=== PATIENT | female | born 1980 | race Two or more races ===

== ENCOUNTER 2018-02-24 09:42 | Outpatient (CLI) | payer OTHER | END 2018-02-24 10:16 | disposition home or self-care (01) | LOC: SONOGRAMA 09:42 | DX: N63.11 Unspecified lump in the right breast, upper outer quadrant (principal); N60.11 Diffuse cystic mastopathy of right breast; N60.12 Diffuse cystic mastopathy of left breast ==

== ENCOUNTER 2018-06-23 08:18 | Outpatient (CLI) | payer OTHER ==
[2018-06-29] MEDS ORDERED: PERCOCET PO (08:46)
[2018-06-29] MEDS ORDERED: PERCOCET (08:46)
== END 2018-06-23 08:38 | disposition home or self-care (01) ==
LOC: LAB 08:18
DX: Z01.810 Encounter for preprocedural cardiovascular examination (principal); Z01.812 Encounter for preprocedural laboratory examination

== ENCOUNTER 2018-06-30 06:30 | Inpatient (IN) | payer OTHER ==
[~2018-06-30] VITALS: Ht 160 cm; Wt 72.6 kg
[~2018-06-30 06:30] MED LIST: PERCOCET; PERCOCET PO
[2018-06-30] MEDS ORDERED: PERCOCET 2.5-31 EACH PO (08:30)
== END 2018-07-01 13:37 | disposition home or self-care (01) | DRG 581 ==
LOC: O/R 06:30 → SURG 07:30 → SURH 18:29
PROVIDERS: Plastic Surgery; Surgery
PROC: 0HHV0NZ Insertion of Tissue Expander into Bilateral Breast, Open Approach (ICD-10-PCS; 2018-06-30)
PROC: 07B50ZX Excision of Right Axillary Lymphatic, Open Approach, Diagnostic (ICD-10-PCS; principal; 2018-06-30 09:45)
PROC: 0HTV0ZZ Resection of Bilateral Breast, Open Approach (ICD-10-PCS; 2018-06-30 09:45)
DX: C50.411 Malignant neoplasm of upper-outer quadrant of right female breast (principal); Z90.13 Acquired absence of bilateral breasts and nipples; N62 Hypertrophy of breast

== ENCOUNTER 2018-09-01 08:13 | Outpatient (CLI) | payer OTHER ==
[~2018-09-01 08:13] MED LIST changes: +PERCOCET 2.5-31 EACH PO
[2018-09-01] MEDS ORDERED: TAMOXIFEN CITRA20 MG (10:34)
== END 2018-09-01 12:37 | disposition home or self-care (01) ==
LOC: LAB 08:13
DX: C50.411 Malignant neoplasm of upper-outer quadrant of right female breast (principal)

== ENCOUNTER 2018-09-01 08:16 | Outpatient (CLI) | payer OTHER ==
[2018-09-01] MEDS ORDERED: TAMOXIFEN CITRA20 MG (10:34)
== END 2018-09-01 08:44 | disposition home or self-care (01) ==
LOC: EKG 08:16
DX: C50.411 Malignant neoplasm of upper-outer quadrant of right female breast (principal)

== ENCOUNTER 2018-09-04 05:50 | Day surgery (SDC) | payer OTHER ==
[~2018-09-04 05:50] MED LIST changes: +TAMOXIFEN CITRA20 MG
== END 2018-09-04 13:21 | disposition home or self-care (01) ==
LOC: CIR.AMB 05:50
DX: N65.1 Disproportion of reconstructed breast (principal); Z90.13 Acquired absence of bilateral breasts and nipples

== ENCOUNTER 2019-05-14 06:29 | Day surgery (SDC) | payer OTHER ==
[~2019-05-14 06:29] MED LIST changes: +TAMOXIFEN CITRA20 MG PO
== END 2019-05-14 13:05 | disposition home or self-care (01) ==
LOC: CIR.AMB 06:29
PROVIDERS: Plastic Surgery
PROC: 0H0V0ZZ Alteration of Bilateral Breast, Open Approach (ICD-10-PCS; principal; 2019-05-14 13:45)
DX: C50.411 Malignant neoplasm of upper-outer quadrant of right female breast (principal); Z90.13 Acquired absence of bilateral breasts and nipples

== ENCOUNTER 2019-06-01 06:39 | Day surgery (SDC) | payer OTHER | END 2019-06-01 12:20 | disposition home or self-care (01) | LOC: CIR.AMB 06:39 | PROVIDERS: Plastic Surgery | PROC: 0HPT0JZ Removal of Synthetic Substitute from Right Breast, Open Approach (ICD-10-PCS; 2019-06-01) | PROC: 0HRV0JZ Replacement of Bilateral Breast with Synthetic Substitute, Open Approach (ICD-10-PCS; 2019-06-01) | PROC: 0HPU0JZ Removal of Synthetic Substitute from Left Breast, Open Approach (ICD-10-PCS; principal; 2019-06-01 09:45) | DX: C50.411 Malignant neoplasm of upper-outer quadrant of right female breast (principal); Z90.13 Acquired absence of bilateral breasts and nipples | CPT/HCPCS: 19330; 19342; C1789 ==